=== PATIENT | female | born 1955 | race Two or more races ===

== ENCOUNTER 2021-10-24 21:38 | Emergency (ER) | payer OTHER ==
[~2021-10-24] VITALS: Ht 152.4 cm; Wt 136.1 kg
[~2021-10-24 21:38] MED LIST: LISI20TA28 PO; METF-372 PO
[2021-10-24 23:51] LABS: Basophils # (auto) 0 10 ^3/uL (0-0.2); Basophils % (auto) 0.5 % (0.0-2.0); Eosinophils # (auto) 0.2 10 ^3/uL (0-0.8); Eosinophils % (auto) 3.3 % (0.0-7.0); Hematocrit 37.8 % (36.0-46.0); Hemoglobin 13.1 g/dL (12.2-16.2); Lymphocytes # (auto) 1.7 10 ^3/uL (0.4-5.4); Lymphocytes % (auto) 26.4 % (10.0-50.0); Mean Corpuscular Hemoglobin 31.8 pg (28.0-32.0); Mean Corpuscular Hgb Conc. 34.7 g/dL (32.0-36.0); Mean Corpuscular Volume 91.6 fL (80.0-100.0); Monocytes # (auto) 0.3 10 ^3/uL (0-1.3); Monocytes % (auto) 4.1 % (0.0-12.0); Neutrophils # (auto) 4.2 10 ^3/uL (1.6-8.6); Neutrophils % (auto) 65.7 % (37.0-80.0); Nucleated Red Blood Cells % 0.1 %; Red Blood Cells 4.13 10^6/uL (4.0-5.20); Red Cell Distribution Width 14.2 % (11.8-14.3); White Blood Cell 6.3 10^3/uL (4.4-10.8)
[2021-10-25 00:13] LABS: Potassium 4.3 mmol/L (3.5-5.1)
[2021-10-25 00:19] LABS: Albumin 3.6 g/dL (3.4-5.0); BUN/Creatinine Ratio 14.3; Magnesium 2.5 mg/dL (1.6-2.6)
[2021-10-25 00:21] LABS: Bilirubin, Total 0.5 mg/dL (0.2-1.0); Total Protein 7.4 g/dL (6.4-8.2)
[2021-10-25 01:47] VITALS: BP 140/99
[2021-10-25 03:11] LABS: Urine Blood Normal /uL (Negative); Urine Specific Gravity 1.029 (1.001-1.035)
[2021-10-25 04:30] LABS: Urine Bacteria FEW /hpf (None Seen); Urine WBC 10 /hpf (0 - 5)
== END 2021-10-25 01:58 | disposition home or self-care (01) ==
LOC: ER 21:38
DX: R07.89 Other chest pain (principal); R42 Dizziness and giddiness; I10 Essential (primary) hypertension; E11.9 Type 2 diabetes mellitus without complications; Z79.899 Other long term (current) drug therapy
CPT/HCPCS: 36415; 80053; 81001; 83735; 83880; 84484; 85025; 93005